=== PATIENT | male | born 1975 | race Caucasian/White ===

== ENCOUNTER 2018-12-30 02:33 | Observation (INO) ==
[2018-12-30] MEDS ORDERED: Ketorolac 15 MG/ML VIAL IVP ONE (02:49)
[2018-12-30] MEDS ORDERED: Ondansetron 4 MG/2 ML VIAL IVP ONE (02:49)
[2018-12-30] MEDS ORDERED: 0.9 % Sodium Chloride 1,000 ML IVC ONE (02:49)
[2018-12-30] MEDS ORDERED: Isovue-370 500 ML BOTTLE IVP ONE (02:53)
[2018-12-30 03:09] LABS: Bilirubin,Urine Negative (Negative); Blood,Urine Trace (Negative); Clarity,Urine Clear (Clear); Color,Urine Yellow (Yellow); Glucose,Urine (UA) Normal (Normal); Ketones,Urine Negative (Negative); Leukocyte Esterase,Urine Negative (Negative); Nitrite,Urine Negative (Negative); Protein,Urine Negative (Neg-Trace); Specific Gravity,Urine 1.016 (1.010-1.025); Urobilinogen,Urine Normal (Normal)
[2018-12-30 03:10] LABS: Eosinophils % 1.4 %; Hematocrit 44.8 % (37.5-50.1); Hemoglobin 15.1 g/dL (12.9-16.9); Immature Granulocytes % 0.3 % (0-4); Mean Corpuscular HGB Conc 33.7 g/dL (31.6-35.5); Mean Corpuscular Hemoglobin 29.4 pg (28.0-33.3); Mean Corpuscular Volume 87.2 fL (83.0-100.0); Mean Platelet Volume 10.6 fL (9.4-12.4); Monocytes % 7.5 %; Platelet Count 240 K/mcL (140-400); Red Blood Count 5.14 M/mcL (4.19-5.50); Segmented Neutrophils % 63.1 %; White Blood Count 12.1 K/mcL (4.3-11.1)
[2018-12-30 03:11] LABS: Bacteria,Urine None Seen per hpf (None-Few); Basophils # 0.1 K/mcL (0.0-0.2); Basophils % 0.7 %; Eosinophils # 0.2 K/mcL (0.0-0.6); Hyaline Casts,Urine None Seen per lpf (None-Few); Lymphocytes # 3.3 K/mcL (0.6-4.6); Monocytes # 0.9 K/mcL (0.0-1.3); Neutrophils # 7.6 K/mcL (1.6-8.9); RBC,Urine 0-3 per hpf (0-3); Squamous Epithelial Cell,Urine None Seen per lpf (None-Few); WBC,Urine 0-3 per hpf (0-3)
[2018-12-30 03:30] LABS: Alanine Aminotransferase 49 Units/L (7-52); Albumin 4.3 g/dL (3.5-5.7); Albumin/Globulin Ratio 1.7 (1.1-2.2); Alkaline Phosphatase 97 Units/L (34-104); Aspartate Amino Transferase 122 Units/L (13-39); BUN/Creatinine Ratio 13 (6-26); Bilirubin,Total 0.7 mg/dL (0.3-1.0); Blood Urea Nitrogen 10 mg/dL (6-20); Calcium 9.2 mg/dL (8.6-10.3); Carbon Dioxide 24 mEq/L (23-29); Chloride 103 mEq/L (98-107); Globulin 2.6 g/dL (2.4-3.5); Glucose 129 mg/dL (70-105); Lipase 21 Units/L (11-82); Osmolality,Calculated 287 (280-300); Potassium 3.7 mEq/L (3.5-5.1); Sodium 138 mEq/L (136-145); Total Protein 6.9 g/dL (6.4-8.9); eGFR For African Americans > 60 (> 60); eGFR For Non-African Americans > 60 (> 60)
[2018-12-30] MEDS ORDERED: Isovue-370 500 ML BOTTLE PO ONE (04:33)
[2018-12-30] MEDS ORDERED: Ondansetron 4 MG/2 ML VIAL IVP PRN (05:20)
[2018-12-30 05:39] LABS: Amphetamine Screen,Urine Negative ng/mL (Cutoff=1000); Barbiturate Screen,Urine Negative ng/mL (Cutoff=200); Benzodiazepines Screen,Urine Negative ng/mL (Cutoff=200); Cannabinoid Screen,Urine Negative ng/mL (Cutoff = 50); Cocaine Screen,Urine Negative ng/mL (Cutoff= 300); Opiate Screen,Urine Negative ng/mL (Cutoff=300); Phencyclidine Screen,Urine Negative ng/mL (Cutoff=25)
[2018-12-30 05:40] LABS: Ethanol < 10 mg/dL (Less than 10)
[2018-12-30] MEDS: Ringers Solution, Lactated 1,000 ML IVC SCH ×2 (06:51→11:58)
[2018-12-30] MEDS: Ketorolac 30 MG/ML VIAL IVP PRN ×2 (10:48→20:16)
[2018-12-30] MEDS: *HR* Metoprolol 5 MG/5 ML VIAL IVP SCH ×2 (12:23→17:45)
[2018-12-30] MEDS ORDERED: cefTRIAXone 1,000 MG in Water for inj. (sterile) 10 ML IVP SCH (13:35)
[2018-12-30] MEDS ORDERED: *HR* Rocuronium Bromide 50 MG/5 ML VIAL ONE (23:16)
[2018-12-30] MEDS ORDERED: *HR* FentaNYL (PF) 100 MCG/2 ML VIAL ONE (23:16)
[2018-12-30] MEDS ORDERED: *HR* Midazolam HCl 2 MG/2 ML VIAL ONE (23:16)
[2018-12-30] MEDS ORDERED: Lidocaine -MPF 2% 2 ML VIAL ONE (23:16)
[2018-12-30] MEDS ORDERED: *HR* Propofol 200 MG/20 ML VIAL IVP ONE (23:16)
[2018-12-30] MEDS ORDERED: *HR* Succinylcholine 200 MG/10 ML VIAL IVP ONE (23:16)
[2018-12-30] MEDS ORDERED: CefOXitin 1,000 MG VIAL ONE (23:18)
[2018-12-30] MEDS ORDERED: Isovue-300 50ML VIAL ONE (23:18)
[2018-12-30] MEDS ORDERED: Lidocaine HCL 4 ML Topical Solution (Laryng-O-Jet Kit Sterile Pak) TP ONE (23:21)
[2018-12-31] MEDS ORDERED: cefOXitin 2,000 MG in 0.9 % Sodium Chloride Mini Bag 100 ML IVP ONE (00:03)
[2018-12-31] MEDS ORDERED: Famotidine 20 MG/2 ML VIAL ONE (00:09)
[2018-12-31] MEDS ORDERED: Acetaminophen IV 1,000 MG/100 ML INFUS..BTL ONE (00:09)
[2018-12-31] MEDS ORDERED: *HR* HYDROMORPHONE 2 MG/ML VIAL ONE (01:19)
[2018-12-31] MEDS ORDERED: Dexamethasone 4 MG/ML VIAL ONE (01:30)
[2018-12-31] MEDS ORDERED: Ondansetron 4 MG/2 ML VIAL ONE (01:30)
[2018-12-31] MEDS ORDERED: Neostigmine Methylsulfate 3 MG/3 ML SYRINGE ONE (01:40)
[2018-12-31] MEDS ORDERED: CefOXitin 2,000 MG VIAL ONE (01:43)
[2018-12-31] MEDS ORDERED: *HR* Labetalol 20 MG/4 ML SYRINGE IVP PRN (01:51)
[2018-12-31] MEDS ORDERED: *HR* Promethazine 25 MG/ML VIAL IVP PRN (01:51)
[2018-12-31] MEDS: *HR* HYDROmorphone (PF) 1 MG/ML SYRINGE IVP PRN ×2 (02:20→02:30)
[2018-12-31] MEDS ORDERED: Ondansetron 4 MG/2 ML VIAL IVP PRN (03:01)
[2018-12-31] MEDS: *HR* Metoprolol 5 MG/5 ML VIAL IVP SCH ×2 (05:40→11:54)
[2018-12-31 05:46] LABS: Basophils % 0.4 %; Eosinophils # 0.1 K/mcL (0.0-0.6); Eosinophils % 0.7 %; Hemoglobin 13.8 g/dL (12.9-16.9); Immature Granulocytes % 0.4 % (0-4); Lymphocytes # 0.9 K/mcL (0.6-4.6); Lymphocytes % 12.3 %; Mean Corpuscular HGB Conc 33.7 g/dL (31.6-35.5); Mean Corpuscular Hemoglobin 29.9 pg (28.0-33.3); Mean Corpuscular Volume 88.7 fL (83.0-100.0); Mean Platelet Volume 10.7 fL (9.4-12.4); Monocytes # 0.1 K/mcL (0.0-1.3); Platelet Count 174 K/mcL (140-400); Red Blood Count 4.62 M/mcL (4.19-5.50); Red Cell Distribution Width 12.3 % (11.5-14.5); Segmented Neutrophils % 84.2 %; White Blood Count 7.1 K/mcL (4.3-11.1)
[2018-12-31 06:07] LABS: Alanine Aminotransferase 133 Units/L (7-52); Albumin 3.8 g/dL (3.5-5.7); Albumin/Globulin Ratio 1.7 (1.1-2.2); Alkaline Phosphatase 139 Units/L (34-104); Aspartate Amino Transferase 137 Units/L (13-39); BUN/Creatinine Ratio 11 (6-26); Bilirubin,Total 0.5 mg/dL (0.3-1.0); Blood Urea Nitrogen 9 mg/dL (6-20); Calcium 8.6 mg/dL (8.6-10.3); Carbon Dioxide 29 mEq/L (23-29); Chloride 104 mEq/L (98-107); Globulin 2.3 g/dL (2.4-3.5); Glucose 106 mg/dL (70-105); Osmolality,Calculated 283 (280-300); Potassium 4.3 mEq/L (3.5-5.1); Sodium 137 mEq/L (136-145); Total Protein 6.1 g/dL (6.4-8.9); eGFR For African Americans > 60 (> 60); eGFR For Non-African Americans > 60 (> 60)
[2018-12-31] MEDS: Ketorolac 30 MG/ML VIAL IVP PRN ×2 (06:21→11:54)
[2018-12-31] MEDS ORDERED: cefTRIAXone 1,000 MG in Water for inj. (sterile) 10 ML IVP SCH (09:00)
[2018-12-31 12:19] VITALS: BP 112/67
== END 2018-12-31 17:24 | disposition home or self-care (01) ==
LOC: EMEROOARM 02:33 → 3NENU 02:33 → SUATTDRO 05:25 → 3NENU 06:18
PROVIDERS: ADMIT Internal Medicine; ATTEND Internal Medicine